=== PATIENT | female | born 1995 | race Caucasian/White ===

== ENCOUNTER → 2017-04-11 | Outpatient (CLI) | payer OTHER | LOC: FIMAGING 11:55 | PROVIDERS: ATTEND Obstetrics & Gynecology | DX: Z34.02 Encounter for supervision of normal first pregnancy, second trimester (principal); Z3A.18 18 weeks gestation of pregnancy ==

== ENCOUNTER → 2017-10-14 | Outpatient (CLI) | payer OTHER | LOC: FLACT 13:58 | PROVIDERS: ATTEND Obstetrics & Gynecology | DX: O92.5 Suppressed lactation (principal) | CPT/HCPCS: G0463 ==

== ENCOUNTER → 2019-02-16 | Outpatient (CLI) | payer OTHER | LOC: FIMAGING 09:53 | PROVIDERS: ATTEND Obstetrics & Gynecology | DX: Z34.82 Encounter for supervision of other normal pregnancy, second trimester (principal); Z3A.22 22 weeks gestation of pregnancy ==